=== PATIENT | male | born 1945 | race Caucasian/White ===

== ENCOUNTER 2017-01-19 14:15 | Emergency (ER) | payer OTHER, MEDICAID ==
[2017-01-19 14:28] VITALS: BP 148/71; PULSE 71; RESP 16; TEMP 98.2; O2SAT 96
[2017-01-19] MEDS ORDERED: LET GEL TOPICAL 1 EA SYR TP ONE (14:28)
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
== END 2017-01-19 15:16 | disposition home or self-care (01) ==
PROC: 0HQLXZZ Repair Left Lower Leg Skin, External Approach (ICD-10-PCS; principal; 2017-01-19)
DX: S81.812A Laceration without foreign body, left lower leg, initial encounter (principal); V89.2XXA Person injured in unspecified motor-vehicle accident, traffic, initial encounter; Y92.410 Unspecified street and highway as the place of occurrence of the external cause